=== PATIENT | female | born 1940 | race Caucasian/White ===

== ENCOUNTER → 2020-04-19 09:13 | Outpatient (CLI) | payer MEDICARE, BC, SELFPAY ==
--- NOTE | 2020-04-19 | DI.RAD.S_ITS ---
PROCEDURE: FL UPPER GI SMALL BOWEL INDICATIONS: Gastro-esophageal reflux disease COMPARISON: None. 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 No suspicious abdominal calcifications. Visualized solid organ contours appear normal in size. No suspicious bony abnormalities. Esophagus: Air-contrast views demonstrate a normal mucosal pattern. Tertiary contraction waves noted in the distal esophagus. No extrinsic mass effects, or diverticula. Gastroesophageal reflux occurred during the study which occurred without provocative maneuvers. Small hiatal hernia is noted. Prominent B ring is noted. The prominence of the B ring is eccentric concerning for possible neoplastic process at the gastroesophageal junction There is delayed transit of a calibrated barium tablet through the at the eccentric prominent B ring.. Stomach: The gastric lumen is normally distensible, and has normal rugal fold thickness. No mucosal masses or ulcers. The pylorus and duodenal bulb have a normal morphology. Small bowel: Duodenal folds appear normal in thickness. There is normal transit time of barium through the small intestine. Small diverticulum involving the medial margin the 2nd portion of the duodenum. Small bowel loops appear normal in caliber throughout. Jejunal and ileal folds are smooth and normal in thickness. No strictures, intraluminal masses, or extrinsic mass effects. The terminal ileum is identified and appears normal. IMPRESSION: 1. Eccentric, prominent B ring causing delayed passage of calibrated barium tablet concerning for neoplastic process. Recommend gastroenterology consultation for endoscopy evaluation. 2. Esophageal dysmotility. 3. Gastroesophageal reflux which occurred without provocative maneuvers. 4. Duodenal diverticulum. Dictated by: Joycelyn Colon MD, PhD on 04/19/2020 at 14:45 Approved by: Joycelyn Colon MD, PhD on 04/19/2020 at 14:53
== END ==
PROVIDERS: Family Provider Internal Medicine; PCP Registered Nurse; Referring Provider Registered Nurse; Visit Provider Registered Nurse
DX: K21.9 Gastro-esophageal reflux disease without esophagitis (principal); R10.13 Epigastric pain; K22.4 Dyskinesia of esophagus; K57.10 Diverticulosis of small intestine without perforation or abscess without bleeding
CPT/HCPCS: 74240; 74248